=== PATIENT | female | born 1980 | race Caucasian/White ===

== ENCOUNTER 2020-12-01 05:34 | Inpatient (IN) | payer OTHER ==
[~2020-12-01] VITALS: Ht 162.6 cm; Wt 57.2 kg
[2020-12-01] MEDS ORDERED: PRENATAL + DHA1 EAC1 PO (06:04)
[2020-12-01] MEDS ORDERED: AMPICILLIN TRI500 MG PO (06:05)
== END 2020-12-03 10:51 | disposition home or self-care (01) | DRG 807 ==
LOC: LDR 05:34 → OB/GYN 05:34
PROVIDERS: ADMIT Specialist; ATTEND Specialist
PROC: 10E0XZZ Delivery of Products of Conception, External Approach (ICD-10-PCS; principal; 2020-12-01)
PROC: 0W8NXZZ Division of Female Perineum, External Approach (ICD-10-PCS; 2020-12-01)
PROC: 4A1HXFZ Monitoring of Products of Conception, Cardiac Rhythm, External Approach (ICD-10-PCS; 2020-12-01)
DX: O26.893 Other specified pregnancy related conditions, third trimester (principal); Z37.0 Single live birth; O99.824 Streptococcus B carrier state complicating childbirth; Z3A.37 37 weeks gestation of pregnancy; Z20.822 Contact with and (suspected) exposure to COVID-19